=== PATIENT | male | born 2000 | race Two or more races ===

== ENCOUNTER 2021-02-25 10:54 | Emergency (ER) | payer MEDICAID ==
[~2021-02-25] VITALS: Ht 182.9 cm; Wt 83.9 kg
[2021-02-25 11:44] VITALS: BP 124/77
== END 2021-02-25 12:22 | disposition home or self-care (01) ==
LOC: ER 10:54
DX: S93.601A Unspecified sprain of right foot, initial encounter (principal); X50.1XXA Overexertion from prolonged static or awkward postures, initial encounter; Y93.67 Activity, basketball; Y92.39 Other specified sports and athletic area as the place of occurrence of the external cause; Y99.8 Other external cause status
CPT/HCPCS: 73630

== ENCOUNTER 2022-06-29 11:47 | Emergency (ER) | payer MEDICAID ==
[~2022-06-29] VITALS: Ht 182.9 cm; Wt 86.5 kg
[2022-06-29 12:41] VITALS: BP 119/91
[2022-06-29] MEDS ORDERED: PROM1SOL4 PO (14:54)
[2022-06-29] MEDS ORDERED: AMOX-277 PO (14:54)
[2022-06-29] MEDS ORDERED: PRED20TA2 PO (14:54)
== END 2022-06-29 15:04 | disposition home or self-care (01) ==
LOC: ER 11:47
DX: H65.192 Other acute nonsuppurative otitis media, left ear (principal); J20.9 Acute bronchitis, unspecified; J45.909 Unspecified asthma, uncomplicated

== ENCOUNTER → 2024-02-07 | Outpatient (CLI) | payer MEDICAID ==
[~2024-02-07] MED LIST: AMOX875T4 PO; PRED20TA2 PO; PROM1SOL4 PO
[2024-02-07 10:40] LABS: Basophils # (auto) 0.1 10 ^3/uL (0-0.2); Basophils % (auto) 1.1 % (0.0-2.0); Eosinophils # (auto) 0.2 10 ^3/uL (0-0.8); Hematocrit 47.8 % (41.0-53.0); Hemoglobin 15.7 g/dL (13.5-17.5); Lymphocytes # (auto) 2.5 10 ^3/uL (0.4-5.4); Lymphocytes % (auto) 43.2 % (10.0-50.0); Mean Corpuscular Hemoglobin 29.4 pg (28.0-32.0); Mean Corpuscular Hgb Conc. 32.9 g/dL (32.0-36.0); Mean Corpuscular Volume 89.5 fL (80.0-100.0); Monocytes # (auto) 0.4 10 ^3/uL (0-1.3); Monocytes % (auto) 6.3 % (0.0-12.0); Neutrophils # (auto) 2.7 10 ^3/uL (1.6-8.6); Neutrophils % (auto) 46.4 % (37.0-80.0); Red Blood Cells 5.35 10^6/uL (4.5-5.90); Red Cell Distribution Width 13.1 % (11.8-14.3); White Blood Cell 5.7 10^3/uL (4.4-10.8)
[2024-02-07 11:24] LABS: Alanine Aminotransferase 18 U/L (7-40); Albumin 4.3 g/dL (3.2-4.8); Alkaline Phosphatase 92 U/L (46-116); Anion Gap 5 (5-15); Aspartate Aminotransferase 37 U/L (13-40); BUN/Creatinine Ratio 9.4 (10.0-20.0); Bilirubin, Total 2.7 mg/dL (0.2-1.0); Blood Urea Nitrogen 10 mg/dL (9-23); Calcium 9.4 mg/dL (8.5-10.1); Carbon Dioxide 28 mmol/L (20-30); Chloride 107 mmol/L (98-107); Cholesterol 139 mg/dL (< 200); Glucose 97 mg/dL (74-106); HDL Cholesterol 43 mg/dL (40-59); LDL Cholesterol 86 mg/dL (< 100); Potassium 4.5 mmol/L (3.5-5.1); Sodium 140 mmol/L (136-145); Total Protein 6.7 g/dL (5.7-8.2); Triglycerides 91 mg/dL (< 150)
== END | disposition home or self-care (01) ==
LOC: LAB 10:26
PROVIDERS: ATTEND Nurse Practitioner Family
DX: E78.1 Pure hyperglyceridemia (principal); J45.20 Mild intermittent asthma, uncomplicated
CPT/HCPCS: 36415; 80053; 80061; 84439; 84443; 85025

== ENCOUNTER 2024-07-03 14:54 | Emergency (ER) | payer MEDICAID ==
[~2024-07-03] VITALS: Ht 180.3 cm; Wt 89.4 kg
[2024-07-03 15:56] VITALS: BP 126/83; PULSE 104; RESP 18; TEMP 98.3; O2SAT 96
[2024-07-03] MEDS: SODIUM CHLORIDE 0.9% 1,000 ML IV ONE (16:35)
[2024-07-03] MEDS: diphenhdrAMINE HCL 50 MG/1 ML VL IV ONE (16:38)
[2024-07-03] MEDS: KETOROLAC TROMETH 30 MG/ML 1ML VIAL IV ONE (16:39)
[2024-07-03] MEDS: PROCHLORPERAZINE EDISYLATE 5 MG/ML 2ML VIAL IV ONE (16:39)
[2024-07-03] MEDS ORDERED: IBUP-1455 PO (17:16)
== END 2024-07-03 17:38 | disposition home or self-care (01) ==
LOC: ER 15:01
DX: G44.209 Tension-type headache, unspecified, not intractable (principal); J45.909 Unspecified asthma, uncomplicated
CPT/HCPCS: 96360; 99283; J0780; J1200; J1885